=== PATIENT | male | born 1945 | race Two or more races ===

== ENCOUNTER 2016-09-28 18:20 | Inpatient (IN) | payer MEDICARE, OTHER ==
[~2016-09-28] VITALS: Ht 177.8 cm; Wt 81.2 kg
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
--- NOTE | ~2016-09-28 | CON ---
PATIENT'S NAME: BRITT TRAMMELL [facility] AGE: 71 Y [address] ROOM: [place] [address] LOCATION: [facility] ADMIT DATE: 09/28/2016 Consultation DISCHARGE DATE: FAMILY PHYSICIAN: Anand Guajardo MD ATTENDING PHYSICIAN: Kaela Thompson REFERRING PHYSICIAN: KATRINA DOBBS, A consult for Dr. Thompson. This pleasant 71-year-old gentleman is referred for rehab GIRP evaluation. He is status post C1 fracture, details on record, of which he did undergo halo brace with jacket fixation, status post odontoid fracture type 2. He has also laceration of the knee on the left side, which at the present time treated and braced. He also had T5 vertebrae superior endplate fracture, stable. He used to be a heavy tobacco smoker until few years back and now abstaining. He is alert and oriented. VITAL SIGNS: Blood pressure 137/77, temperature 98.4, pulse 68, and respirations 18. He is 5 feet and 10 inches and weighs 81.2 kg. He is having some difficulty with swallowing. We will have Speech Therapy see and follow. I do not have any good idea why he is doing that. He has weakness of the left upper extremity and left lower extremity, can hardly move left upper extremity, can move a little bit left lower extremity, and now in brace to prevent knee movement at the present time status post suturing of the traumatic wound on the left knee secondary to the fall. Muscle strength on the left upper extremity 2/5 and left lower extremity about 3- to 3/5. He has decreased sensation throughout on the left side. Deep tendon reflexes are slightly exaggerated on the left side and within normal limits on the right. He is on the following medications: 1. MiraLax. 2. Dulcolax. 3. Colace. 4. MOM. 5. Lovenox. PATIENT'S NAME: BRITT TRAMMELL [facility] AGE: 71 Y [address] ROOM: [place] [address] LOCATION: [facility] ADMIT DATE: 09/28/2016 Consultation DISCHARGE DATE: FAMILY PHYSICIAN: Anand Guajardo MD ATTENDING PHYSICIAN: Obasi,Kaela N 6. Zofran. 7. Morphine. We will continue PT/OT and I will add Speech to his therapies to see and evaluate his swallowing. I feel this gentleman will benefit from intensive rehabilitation. I will take him as soon as I have an opening. Thank you for this referral. All the above was explained to him and his son, they verbalized understanding. MD BIMAL BRITO/modl /[id number] d: 10/02/162027 t: 10/03/16 0759, CONSULTATION REPORT
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
[2016-09-28 19:04] LABS: INR - (THERAPEUTIC) 0.99 (0.92-1.07); PROTIME 10.4 SECONDS (9.8-11.4)
[2016-09-29 10:11] LABS: ESTIMATED GFR (MDRD EQUATION) > 60
[2016-09-29] MEDS ORDERED: ANORO ELLIPTA1 EACH INH (10:55)
== END 2016-10-06 15:30 | DRG 502 ==
LOC: GACC 18:20 → GICU 19:51 → EDBD 19:51 → G3N 19:51 → GICU 09-29 05:03 → G3N 10-01 10:04
PROVIDERS: Family Medicine; ADMIT Neurological Surgery
PROC: 2W60X0Z Traction of Head using Traction Apparatus (ICD-10-PCS; principal; 2016-09-28)
PROC: 0JDP0ZZ Extraction of Left Lower Leg Subcutaneous Tissue and Fascia, Open Approach (ICD-10-PCS; principal; 2016-09-28)
DX: S12.110A Anterior displaced Type II dens fracture, initial encounter for closed fracture (principal); S81.012A Laceration without foreign body, left knee, initial encounter; J44.9 Chronic obstructive pulmonary disease, unspecified; S12.000A Unspecified displaced fracture of first cervical vertebra, initial encounter for closed fracture; S13.100A Subluxation of unspecified cervical vertebrae, initial encounter; Z87.891 Personal history of nicotine dependence; V29.3XXA Motorcycle rider (driver) (passenger) injured in unspecified nontraffic accident, initial encounter; Y93.55 Activity, bike riding
CPT/HCPCS: A9577; J0690; J1650; J2270; J2405; J3360; J7030

== ENCOUNTER 2016-10-06 15:31 | Inpatient (IN) | payer MEDICARE ==
[~2016-10-06] VITALS: Ht 177.8 cm; Wt 73.8 kg
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
[~2016-10-06 15:31] MED LIST: ANORO ELLIPTA1 EACH INH
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
[2016-10-06 18:50] LABS: BILIRUBIN URINE NEGATIVE (NEGATIVE); BLOOD URINE NEGATIVE /UL (NEGATIVE); GLUCOSE URINE NEGATIVE (NEGATIVE); KETONE URINE NEGATIVE (NEGATIVE); LEUKOCYTES URINE NEGATIVE /UL (NEGATIVE); NITRITE URINE NEGATIVE (NEGATIVE); PROTEIN URINE NEGATIVE (NEGATIVE); SPEC GRAVITY URINE 1.015 (1.003-1.035); UROBILINOGEN URINE NORMAL (NORMAL)
[2016-10-06 18:53] LABS: COLOR URINE YELLOW (YELLOW); TURBIDITY URINE CLEAR (CLEAR)
[2016-10-07 04:41] LABS: BASOPHIL # 0.1 K/uL (0.0-0.2); BASOPHIL % 0.9 %; EOSINOPHIL # 0.1 K/uL (0.0-0.5); EOSINOPHIL % 1.7 %; HEMATOCRIT 33.1 % (37.0-53.0); HEMOGLOBIN 11.3 g/dL (11.0-16.0); IMMATURE GRANULOCYTE # 0.1 K/uL (0.0-0.3); IMMATURE GRANULOCYTE % 0.7 %; LYMPHOCYTE # 1.3 K/uL (0.8-4.0); LYMPHOCYTE % 16.9 %; MCH 31.1 pg (27.0-34.0); MCHC 34.1 gm/dL (32.0-36.5); MCV 91.2 fl (83.0-98.0); MONOCYTE # 0.7 K/uL (0.0-1.0); MONOCYTE % 9.2 %; NEUTROPHIL # (ANC) 5.4 K/uL (1.4-9.0); NEUTROPHIL % 70.6 %; NRBC % 0 /100WBC (0-0.00); PLATELET COUNT 309 K/uL (150-450); RBC 3.63 M/uL (3.50-5.50); RDW-CV 13.2 % (11.9-14.6); WBC 7.6 K/uL (4.0-11.0)
[2016-10-07 05:00] LABS: ALBUMIN 2.6 gm/dL (3.5-5.0); ALK PHOS 112 IU/L (33-138); ALT 49 IU/L (12-78); ANION GAP 10.3 (10.0-19.0); AST 31 IU/L (10-40); BLOOD UREA NITROGEN 24 mg/dL (6-24); CALCIUM 8.2 mg/dL (8.5-10.5); CHLORIDE 104 mMol/L (96-110); CO2 27 mMol/L (22-32); CREATININE 0.9 mg/dL (0.6-1.3); ESTIMATED GFR (MDRD EQUATION) > 60; POTASSIUM 4.3 mMol/L (3.7-5.1); SODIUM 137 mMol/L (135-145); TOTAL BILIRUBIN 0.6 mg/dL (0.0-1.5); TOTAL PROTEIN 6.4 g/dL (6.0-8.4)
--- NOTE | 2016-10-07 05:37 | NUR ---
Significant Event: Patient is alert and oriented, VSS. Up one assist with GB/Walker. 2 assist to get into bed. Has a Halo with vest for C Spine injury, with site cares BID. Need orders for site care. Also has had surgery to his left knee with dressing is to wear an immobilizer to his knee. Need orders for that as well. Dr Brand and Donna are suppose to be here today to write orders. Regular diet, takes meds whole with water. Is [place] need to speak directly to him. Takes Batson for pain last dose at 0450. Saline lock to right hand. is present and attentive to his needs. Follow up: Need orders.
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
--- NOTE | 2016-10-07 15:41 | NUR ---
Significant Event: Pt up in room with walker and 1 assist, riaz. fair. New order this afternoon to remove immobilizer, gentle ROM with P.T., WBAT. Pt voiced pain relief and stated he felt like he walked better this afternoon after brace was removed. [place] 1 tab x 4, last at 1525. Phillip wrap to left knee remains intact. P.T. did note in therapy that phillip wrap was rolling and creating ridges in skin, they removed phillip and rewrapped, pt voiced relief. Pt speech difficult to understand at times. Abrasions to bilat shoulders open to air and dry. Pt is [place]. intermittent numbness/tingling to LLE and LUE. Slightly weaker grasp in left. SL removed Follow up: activity, pain management.
--- NOTE | 2016-10-08 04:40 | NUR ---
Patient alert and oriented. Hard of hearing, speech is hard to understand at times. Transfers 1A GB/walker. Weight bearing as tolerated to L) leg. L) leg kirby wrapped. Halo. Abrasions to bilat shoulders, open to air. [place] for pain. VSS. at bedside. Cooperative with cares.
--- NOTE | 2016-10-08 17:10 | NUR ---
Significant Event: Patient is alert and oriented x3. Follows commands. Medication given for AYALA- Relief noted. Pin sites cleaned with hydrogen peroxide. PERRLA. Lungs are clear and slightly diminished throughout. Rigth leg has 1+ edema and left leg has 1+ edema. Extremities are warm to touch with equal strength. Family at bedside. Swallow pills whole. Pleasant and cooperative with cares. Ambulates with one assist, GB and walker. Follow up:
--- NOTE | 2016-10-09 03:59 | NUR ---
Significant Event: Noroc 1 tab last at 0406 for c/o pain to left head. halo intact. edema 2+ to left leg. left knee drsg and kirby wrap d/i. WBAT. swallows pills whole with water. abrasions to bilat shoulders. lungs clear diminsished. voided per urinal. speech mumbled. patient is [place]. Follow up:
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
--- NOTE | 2016-10-09 17:15 | NUR ---
Significant Event:PATIENT ALERT AND ORIENTED THIS SHIFT. IS FORGETFUL AT TIMES. VSS. TRANSFER WITH 1 ASSIST, GAIT BELT AND WALKER. HALO REMAINS INTACT. PIN SITE CARES DONE DAILY. COMPLAINTS OF PAIN AND TAKES [place] 1-2 TABS NEEDED FOR PAIN. LAST DOSE GIVEN AT 1500 OF 2 TABS PO. AT BEDSIDE AT ALL TIMES. LEFT LEG DRESSING AND SOPHIA WRAP REMAINS INTACT. NO OTHER COMPLAINTS. Follow up:
--- NOTE | 2016-10-10 03:54 | NUR ---
Significant Event:Up with one assist/gait belt and walker, does well. Halo device intact, pin sites clear of any drainage. Pt is ANIAK. [place] one tab given twice, last dose at 0340 as rated pain at 6 to left side of neck/head area and left knee/lower leg. Has healing abrasions to bilat shoulders, minimal scab to left shoulder with new pink skin to right shoulder as states scab "fell off yesterday". Forgetful at times. Voids per urinal. Jenniffer at bedside and offers assist. Follow up: Halo pin site cares to be done daily.
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
--- NOTE | 2016-10-10 20:47 | NUR ---
Significant Event:PATIENT ALERT AND ORIENTED THIS SHIFT. IS FORGETFUL AT TIMES. VSS. TRANSFERS WITH 1 ASSIST, GAIT BELT AND WALKER. IS FAIRLY STEADY ON HIS FEET. COMPLAINTS OF PAIN AT TIMES AND TAKES NORCO FOR PAIN. LAST DOSE OF 2 TABS PO GIVEN AT 1358 THIS AFTERNOON. AT BEDSIDE ALL SHIFT. DRESSING TO LEFT LEG INTACT, NO DRAINAGE NOTED. HALO REMAINS, PIN SITE CARES DONE. TOLERATING THERAPIES WELL. NO OTHER COMPLAINTS. Follow up:
--- NOTE | 2016-10-11 06:40 | NUR ---
Significant Event:a/o. 1 ASSIST WITH GB AND WALKER. HALO INTACT. PIN CARES DONE DAILY. VSS ON ROOM AIR. NORCO 2 TABS X2 THIS SHIFT, LAST AT 0300. VOIDS PER URINAL. REFUSED CALF PUMPS. AT BEDSIDE. CALL LIGHT IN REACH. BED ALARM ON. Follow up:
--- NOTE | 2016-10-11 14:50 | NUR ---
Significant Event:Alert and orientated x 3, forget ful @ times. Request [place] for pain control as needed/order. Emmett good support, @ bedside @ intervals. Left knee dressing intact no drainage. Halo intact, pin cares done, with minute old drainage removed. Transfers with 1 assist, walker/gait belt. Pt [place], and talks so fast @ times slurrs speech. Pt has been pleasant and cooperative with plan of care. Follow up:pain control, pin site cares.
--- NOTE | 2016-10-12 03:08 | NUR ---
Significant Event: A&OX3, VSS on room air. Pin site cares. Family helpful with cares. Transfers with 1PA nati halker/GB to bathroom. Voids per urnial. [place] given Q4hrs for pain. Repositioned per request. Patient denies needs. Follow up: continue with plan of care.
--- NOTE | 2016-10-12 16:20 | NUR ---
Significant Event:Alert and orientated x3, forgetful, @ times Request [place] for pain control as needed/order. No change in assessment. Halo intact, cares done to pin site. Transfers with 1 assist, walker/gait belt. [place]. Talks fast, slurrs speech @ times. Pt has been pleasant and cooperative with plan of care. Jenniffer , good support and helpful with ADL's. Pt has been pleasant and cooperative with plan of care. Follow up:pain control, pin site cares.
--- NOTE | 2016-10-13 03:02 | NUR ---
Pt is alert and oriented to person, place and time, pt is cooperative with staff and cares. PT c/o pain and requested pain medication at 0245. PT stated that when he sits too long she becomes stiff. Pt's in the room sleeping in chair. She reported that she assisted pt with urinal during the night. Pin care complete. Pt voices consern about what will happen when the pins are removed. He asked if it would be painful and if he would be awake for the removal. Reported that it was painful when they placed the halo. Pt voices no other complaints at this time.
[2016-10-13 05:21] LABS: ALBUMIN 2.9 gm/dL (3.5-5.0); ANION GAP 9.4 (10.0-19.0); CALCIUM 8.3 mg/dL (8.5-10.5); POTASSIUM 4.4 mMol/L (3.7-5.1); TOTAL BILIRUBIN 0.5 mg/dL (0.0-1.5); TOTAL PROTEIN 6.4 g/dL (6.0-8.4)
--- NOTE | 2016-10-13 15:59 | NUR ---
Significant Event:PATIENT ALERT AND ORIENTED THIS SHIFT. IF FORGETFUL AT TIMES. VSS. TRANSFERS WITH 1 ASSIST, GAIT BELT AND WALKER. HALO INTACT. LEFT KNEE SOPHIA WRAP REDONE THIS AM IT WAS LOOSE AND FALLING DOWN. TOLERATING THERAPIES WITHOUT DIFFICULTY. AT BEDSIDE MOST OF THE SHIFT. TAKES NORCO FOR PAIN. GIVEN 2 TABS LAST AT 1431. NO OTHER COMPLAINTS. Follow up:
--- NOTE | 2016-10-14 05:51 | NUR ---
Alert and oriented. Calls for assistance as needed. Up with one assist and walker. at bedside entire shift. Takes [place], 2 tabs for pain. Last given at 0400. Slept well between pain meds. Lt knee immobilizer to remain on x 1 more week. Pt informed of this and explained why. Dsing to left knee dry and intact.
--- NOTE | 2016-10-14 16:54 | NUR ---
Significant Event:PATIENT ALERT AND ORIENTED THIS SHIFT. VSS. TRANSFERS WITH 1 ASSIST, GAIT BELT AND WALKER. HALO REMAINS IN PLACE. LEFT LEG HAS IMMOBILIZER ON IT AND IS TO NOT BEND KNEE FOR 1 WEEK TO ALLOW LACERATION TO HEAL. AT BEDSIDE THIS SHIFT. SALINE LOCK INTACT AND FLUSHES WELL. NO OTHER COMPLAINTS. Follow up:
--- NOTE | 2016-10-15 04:48 | NUR ---
Alert and oriented. Calls for assistance as needed. Halo cares done, with no new drainage noted at pin sites. Takes [facility] x2 tabs, last given at 0335. Had large BM yesterday. Saline lock to left forearm. sleeps at bedside.
--- NOTE | 2016-10-15 11:24 | NUR ---
A-NUTRITION F/U CBW (STANDING SCALE); 73.7 KG; ADMIT WT (STANDING SCALE): 78.5 KG. THIS IS A 4.8 KG WT LOSS X 5 DAYS. HALO AND L)KNEE IMMOBILIZER STILL IN PLACE ??ACCURACY OF WTS. LABS REVIEWED: PREALB 22.0; UP FROM 15.0 ON 10/07 DIET RX: REGULAR; PO INTAKE 50% (X1)-100%; AVG IS 95%. THIS IS UP FROM 86%. PT IS SELECTING A WIDE VARIETY OF FOODS. EST NUTR NEEDS: 2495-8864 KCALS AND 95-110 GM PROTEIN D-NOT AT NUTRITION RISK; NO NUTRITION DX IDENTIFIED I-1)REQUEST A [place] 2)CONTINUE W/CURRENT DIET RX M/E-GOAL: PO INTAKE >/=75% FOR DURATION OF ADMIT 1)F/U PO INTAKE, WT, LABS, AND POC IN 5-7 DAYS 2)ASSIST NEEDED
--- NOTE | 2016-10-15 11:56 | NUR ---
D: TR progress note for 10/15/16. I: Pt seen for 2 units at 1100 in group session for education on safety when around pets/animals, functional transfers, leisure education and coping strategies. R: Pt seen for functional skills building working on relaxation techniques, stress/pain management, and continued education on coping skills using animals for Animal Assisted Therapy. Pt transferred sit > stand from recliner SBA, pivoted to with walker SBA and transferred into SBA with good recall on hand placement and safety. Pt completed functional communication skills independently which included personal introduction self and pet animals at home. Pt SBA when petting and interacting with animals/volunteers during Animal Assisted Therapy utilizing BUE with good safety awareness. Education done on safety with ambulation/mobility in homes when around animals, safety with possibility of poor skin integrity and utilizing pets to assist with coping and stress/pain management when opportunity available. P: Will continue to see to address goals and plan of care.
--- NOTE | 2016-10-15 14:25 | NUR ---
Significant Event:Emmett reports she will be going home for a while today, and not be back till later. Pt alert and orientated, expresses needs well, voice slurred when talks fast, but understandable. Ambulates with 1 assist and walker/gait belt. Halo pin cares done, all intact. Not to bend left leg for 1 weak, immobilizer in place. Saline lock intact and flushes well. Pt has been pleasant and cooperative with plan of care. Requests 2 [place] tabs for pain, PRN. Saline lock left forearm. Follow up:pain control, halo assessment/pin care, Chemo nurses reportedthey will call for transport to bring pt over Th. @ 1330.
--- NOTE | 2016-10-16 03:20 | NUR ---
Significant Event: Patient is alert and oriented, VSS. Up one assist GB/Walker. Halo patent pin cares QS. [place] given at 0002 for pain. Was c/o of headache earlier in the evening has gotten better with position change. Knee brace in place at all times. rooms in and is attentive to his needs. saline lock to his Left FA. Flushes well no blood return. Follow up:
--- NOTE | 2016-10-16 16:12 | NUR ---
Significant Event: Pt up in room with walker, 1 assist, sl. unsteady, riaz. fair. Dozing off/on t/o day. 2 norco x 2 last at 1223. Small BM today. Halo cares done. L knee brace on at all times. Dressing C/D/I. Follow up: activity, safety, pain management
--- NOTE | 2016-10-17 03:28 | NUR ---
Significant Event: Patient is alert and oriented. VSS. Up one assist with Gb/Walker. Halo patent with pin cares QS. C/o of headaches at times. Takes [place] for pain last dose at 2138 last evening. Left knee brace to be on at all times. Dressing to knee C/D/I. rooms in is attentive to his needs. Patient is very talkative, speaks fast and slurrs is difficult to understand at times. Follow up:
--- NOTE | 2016-10-17 13:57 | NUR ---
Significant Event: Alert/oriented x 3. Vitals stable. Halo intact, pin site cares completed. [place] last at 1116. Immobilizer to left leg. 1 assist with gait belt & walker. Follow up:
--- NOTE | 2016-10-17 14:03 | NUR ---
D: TR progress note for 10/17/16. I: Pt seen for 2 units at 830 for community integration skills building, functional transfers, family training, and safety awareness. R: Pt seen for functional skills building working on family training, mobility, safety, functional transfers and community skills in anticipation for discharge back into community with family. Pt's spouse present for session, transferred into their 4x4 pickup. Pt transferred sit > stand from WC SBA, ambulated with walker to/from vehicle 4 feet SBA and transferred in/out of vehicle CGA with use of 6 inch step to increase ease and safety with pickup transfers. Pt was SBA for BLE management and positioning of self with max cues for technique due to concerns with LLE leg brace and halo precautions. Pt transferred ride with no C/o pain or discomfort. P: Will continue to see to address goals and plan of care.
--- NOTE | 2016-10-18 05:09 | NUR ---
Patient alert and oriented. Transfers 1A gb/walker. Halo with pin cares once a shift. L) knee immobilizer on at all times. Dressing C/D/I. Takes [place] PRN for pain. at bedside. VSS. Cooperative with cares.
--- NOTE | 2016-10-18 15:38 | NUR ---
Significant Event: Pt up in room and reese with walker, 1 assist, riaz. well. [place] 2 tabs x 2 last at 1430. Pt pleasant and cooperative with cares. Halo intact. Takes meds with water. Follow up: activity, pain management, safety
--- NOTE | 2016-10-19 05:00 | NUR ---
Significant Event:a/O. 1 assist transfer w/ GB and walker. VSS on room air. Halo intact. Pin cares provided. Leg brace to left knee on until in bed, removed. Brace digging into ankle. Ambulated in reese way with staff. Voids per urinal. [place] for pain last at 0330,relief noted. Sleeping upon reassessment. at bedside. Bed alarm on. CAll light in reach. Follow up:Ambulation. Pain management
--- NOTE | 2016-10-19 16:47 | NUR ---
Significant Event: Pt up in room and amb in reese with walker, 1 assist, sl. unsteady, riaz. well. Left leg immob. on at all times t/o day. 2 norco last at 1527. Dressing to LLE clean, dry, intact. 1+ edema to LLE. Halo intact. Pin cares done at night. Pt rested off/on t/o day. Pt pleasant and cooperative with cares. Pt is [place]. SL Left FA Follow up: activity, safety, pain mangaement
--- NOTE | 2016-10-20 03:50 | NUR ---
Significant Event:A/O. 1 assist transfer with gaitbelt ans walker. Ambulated in reese way nurse. Voids per urinal. Halo intact, pin cares done. Back left pin site very tender. 2 tabs [place] X2 this shift last at 0254, for pain. [place] something "pop" earlier in evening. Brace appears to be intact. Left knee immobilizer on when in chair. Removed at HS when in bed, back stay off brace digging into calf and ankle. "Jenniffer" at bedside. Call llight in reach. Bed alarm on. Follow up:Reevaluate knee immobilizer. Oral antibiotic. Pain control. Bath.
[2016-10-20 05:42] LABS: BASOPHIL # 0.1 K/uL (0.0-0.2); EOSINOPHIL # 0.2 K/uL (0.0-0.5); EOSINOPHIL % 2.9 %; HEMATOCRIT 36.9 % (37.0-53.0); HEMOGLOBIN 12.2 g/dL (11.0-16.0); IMMATURE GRANULOCYTE % 0.5 %; LYMPHOCYTE # 1.3 K/uL (0.8-4.0); LYMPHOCYTE % 20.4 %; MCHC 33.1 gm/dL (32.0-36.5); MCV 93.7 fl (83.0-98.0); MONOCYTE # 0.6 K/uL (0.0-1.0); MONOCYTE % 9.2 %; MPV 8.5 fl (9.4-12.4); NEUTROPHIL # (ANC) 4.1 K/uL (1.4-9.0); NRBC % 0 /100WBC (0-0.00); PLATELET COUNT 262 K/uL (150-450); RBC 3.94 M/uL (3.50-5.50); RDW-CV 14.3 % (11.9-14.6); WBC 6.2 K/uL (4.0-11.0)
[2016-10-20 06:06] LABS: ANION GAP 11.2 (10.0-19.0); CALCIUM 8.5 mg/dL (8.5-10.5); CREATININE 0.9 mg/dL (0.6-1.3); POTASSIUM 4.2 mMol/L (3.7-5.1); TOTAL BILIRUBIN 0.6 mg/dL (0.0-1.5); TOTAL PROTEIN 6.8 g/dL (6.0-8.4)
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
[2016-10-20] MEDS ORDERED: KEFLEX500 MG PO (13:32)
[2016-10-20] MEDS ORDERED: COLACE100 MG PO (13:34)
[2016-10-20] MEDS ORDERED: HYDROGEN PEROXID1 ML (13:36)
[2016-10-20] MEDS ORDERED: MIRALAX17 GM PO (13:36)
[2016-10-20] MEDS ORDERED: NORCO 5-325 TA1 EACH PO (13:37)
--- NOTE | 2016-10-20 13:40 | NUR ---
PT CONTS TO EAT 75-100%. WT STABLE FROM LAST WEEK AT 162#. PRE-ALB WNL. PT REMAINS NOT AT RISK. WILL ASSIST NEEDED.
--- NOTE | 2016-10-20 17:55 | NUR ---
Significant Event: Pt is going to go home tomorrow. Pt has intact halo, complains of neck and head pain. 2 [place] given at 0738, 1200, 1741, relief noted. Dr. Brand here and looked at L)leg, wrote dressing orders, ordered hinge brace. Brace delivered by [facility]. Follow up: Let do pin site cares tonight.
--- NOTE | 2016-10-21 04:19 | NUR ---
Significant Event:A/O. 1 assist gaitbelt and walker. Pin cares teaching provided to . Left back pin site swollen and tender, no drainage. Halo intact. SL to L) forearm flushes well, remove before discharge to home today. Voids per urinal. BM this shift. Hinged knee brace for left knee, to be on when up moving, locked at 30 degrees. Dressing to left knee c/d/i. 2 [place] given x2 last at 0215. Call light in reach. Bed alarm on. Follow up:Discharge. Pin site cares by .
--- NOTE | 2016-10-21 08:43 | NUR ---
Significant Event: Patient alert and oriented. Up with standby assist. Hard of hearing. Dressing to left leg intact. Hinged brace to left leg intact. Halo intact. Pin site cares done. verbalizes ability to do pin site cares at home. She has been checked off on this. Saline lock discontined. Taking [place] for pain. To go home later this morning with home health. Follow up:
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
== END 2016-10-21 20:30 | disposition home health service (06) | DRG 561 ==
LOC: GIRP 15:31
PROVIDERS: ADMIT Physical Medicine & Rehabilitation
PROC: F07Z9ZZ Gait Training/Functional Ambulation Treatment (ICD-10-PCS; principal; 2016-10-06)
PROC: F08Z4ZZ Home Management Treatment (ICD-10-PCS; principal; 2016-10-06)
PROC: F07M6ZZ Therapeutic Exercise Treatment of Musculoskeletal System - Whole Body (ICD-10-PCS; principal; 2016-10-06)
DX: S12.000D Unspecified displaced fracture of first cervical vertebra, subsequent encounter for fracture with routine healing (principal); M48.02 Spinal stenosis, cervical region; J44.9 Chronic obstructive pulmonary disease, unspecified; S12.110D Anterior displaced Type II dens fracture, subsequent encounter for fracture with routine healing; S81.012D Laceration without foreign body, left knee, subsequent encounter; V29.3XXD Motorcycle rider (driver) (passenger) injured in unspecified nontraffic accident, subsequent encounter; R26.9 Unspecified abnormalities of gait and mobility; M47.9 Spondylosis, unspecified; Z87.891 Personal history of nicotine dependence
CPT/HCPCS: J0690; J1650

== ENCOUNTER → 2016-11-20 | Outpatient (CLI) | payer MEDICARE ==
[~2016-11-20] MED LIST changes: +COLACE100 MG PO; +HYDROGEN PEROXID1 ML; +KEFLEX500 MG PO; +MIRALAX17 GM PO; +NORCO 5-325 TA1 EACH PO
== END | disposition disaster alternative care site (69) ==
LOC: GRAD 10:40
DX: S12.100D Unspecified displaced fracture of second cervical vertebra, subsequent encounter for fracture with routine healing (principal); S12.110D Anterior displaced Type II dens fracture, subsequent encounter for fracture with routine healing; M47.892 Other spondylosis, cervical region; S12.120D Other displaced dens fracture, subsequent encounter for fracture with routine healing; X58.XXXD Exposure to other specified factors, subsequent encounter